=== PATIENT | female | born 1935 | race Caucasian/White ===

== ENCOUNTER 2024-05-30 06:21 | Observation (INO) ==
[~2024-05-30 06:21] MED LIST: Metoclopramide 5 MG/ML VIAL (10 mg) IV PRN; NS 0.45% 1000 ml BAG 1,000 ML IV SCH; Naloxone 0.4 mg VIAL 0.4 mg/ml 1 ml VIAL IV PRN; Ondansetron 4 mg VIAL 2 MG/ML 2 ml VIAL IV PRN; fentaNYL 100 mcg/2 ml 50 MCG/ML VIAL IV PRN
[2024-05-30] MEDS ORDERED: Tranexamic Acid 1 GM/100ML BAG 2,000 MG/200 ML BAG IV ONE (07:24)
[2024-05-30] MEDS ORDERED: ceFAZolin 2 GM PREMIX 2 GM/50 ML BAG ONE (07:25)
[2024-05-30] MEDS ORDERED: Midazolam 2 mg/2 ml VIAL 1 mg/ml 2 ml VIAL (2 mg) ONE ×2 (07:53→09:24)
[2024-05-30] MEDS ORDERED: Lidocaine 2% PF 10 ML AMP (OR) ONE (07:56)
[2024-05-30] MEDS ORDERED: Propofol 10 MG/ML 20 ML BTL ONE (07:56)
[2024-05-30] MEDS ORDERED: fentaNYL 100 mcg/2 ml 50 MCG/ML VIAL ONE ×2 (07:56→09:24)
[2024-05-30] MEDS ORDERED: Dexamethasone IV 4 MG/ML VIAL 1 ml VIAL ONE (07:57)
[2024-05-30] MEDS ORDERED: Ondansetron 4 mg VIAL 2 MG/ML 2 ml VIAL ONE (07:57)
[2024-05-30 07:59] LABS: Rapid COVID-19 Molecular Undetected (Undetected)
[2024-05-30] MEDS ORDERED: ROPIVACAINE 5 MG/ML 30 ML BTL (0.5%) ONE ×2 (08:22→09:14)
[2024-05-30] MEDS ORDERED: Acetaminophen IV 1 GM/100ML 1,000 MG/100 ML BAG IV ONE (10:19)
[2024-05-30] MEDS ORDERED: Ondansetron 4 mg VIAL 2 MG/ML 2 ml VIAL IV PRN (12:30)
[2024-05-30] MEDS ORDERED: Calcium Carb (TUMS) 500 mg CHEW TAB PO PRN (12:30)
[2024-05-30] MEDS ORDERED: Morphine 2 MG/ML SYRINGE IV PRN (12:30)
[2024-05-30] MEDS ORDERED: Ondansetron ODT 4 mg TAB 4 MG TAB PO PRN (12:30)
[2024-05-30] MEDS ORDERED: Lactulose 30 ml UDC PO PRN (12:30)
[2024-05-30] MEDS ORDERED: Magnesium Hydroxide LIQ 30 ML UDC PO PRN (12:30)
[2024-05-30] MEDS: Acetaminophen IV 1 GM/100ML 1,000 MG/100 ML BAG IV ONE (15:57)
[2024-05-30] MEDS: Lactated Ringers 1000 ml BAG 1,000 ML IV SCH ×2 (15:58→16:05)
[2024-05-30] MEDS: Buffered Lidocaine 1% SYRIN 1 ml INTRADERM ONE (15:58)
[2024-05-30] MEDS: Scopolamine 1 mg/72hr PATCH TRANSDERM ONE (15:58)
[2024-05-30] MEDS: ceFAZolin 2 GM PREMIX 2 GM/50 ML BAG IV SCH (18:09)
[2024-05-30] MEDS: Magnesium Hydroxide LIQ 30 ML UDC PO SCH (20:10)
[2024-05-31 07:16] LABS: Hematocrit 33.2 % (35-45); Hemoglobin 11.6 g/dL (11.5-14.3); Mean Platelet Volume 8.3 fL (7.5-11.2); Platelet Count 207 10^3/uL (150-450)
[2024-05-31 07:45] LABS: Calcium 8.4 mg/dL (8.6-10.3); Creatinine, Serum 0.65 mg/dL (0.51-0.95); Potassium 4.7 mmol/L (3.5-5.0); eGFR CKD-EPI 85.2 (>60)
[2024-05-31] MEDS: Vitamin THERAPEUTIC TAB PO SCH (10:26)
[2024-05-31 12:06] LABS: Osmolality Serum 267 mOsm/kg (275-295)
[2024-05-31 15:21] VITALS: BP 132/56
[2024-05-31 15:41] LABS: Calcium 8.7 mg/dL (8.6-10.3); Creatinine, Serum 0.82 mg/dL (0.51-0.95); Potassium 4.9 mmol/L (3.5-5.0); eGFR CKD-EPI 69.2 (>60)
== END 2024-05-31 17:38 | disposition home or self-care (01) ==
LOC: SSU 06:21 → OR 06:21
PROVIDERS: ADMIT Orthopaedic Surgery Adult Reconstructive Orthopaedic Surgery; ATTEND Orthopaedic Surgery Adult Reconstructive Orthopaedic Surgery